=== PATIENT | male | born 1950 | race African-American/Black ===

== ENCOUNTER 2016-08-16 13:25 | Emergency (ER) | payer SELFPAY ==
[~2016-08-16] VITALS: Ht 185.4 cm; Wt 110.0 kg
[~2016-08-16 13:25] MED LIST: 1-ME1LIQ PO; ANDR1GEL TD; BACT800T5 PO; CEPH500C3 PO; CYMB30CA PO; HYDR-3533 PO; LISI-363 PO; QUET1TAB65 PO
[2016-08-16 13:27] VITALS: BP 190/124; PULSE 73; RESP 16; TEMP 97.8; O2SAT 97
--- NOTE | 2016-08-16 13:38 | PD ---
Physical Exam Date Seen by Provider: August 16, 2016 Time Seen by Provider: 13:36 Narrative 66 year old male presents to the emergency department for evaluation of hypertension. He reports associated headache. He has been off his lisinopril and amlodipine for a couple of weeks due to not being able to see his doctor. No chest pain. Vital signs reviewed. Patient awaiting bed placement. Data Data Last Documented VS Vital Signs Date Time Temp Pulse Resp B/P Pulse Ox O2 Delivery O2 Flow Rate FiO2 08/16/16 13:27 97.8 73 16 190/124 97 MDM Supervised Visit with ALISSON: Oksana Flynn August 16, 2016 13:38
--- NOTE | 2016-08-16 15:40 | PD ---
HPI Chief Complaint: Hypertension Time Seen by Provider: 15:30 Travel History International Travel<30 days: No Contact w/Intl Traveler<30days: No Traveled to known affect area: No History of Present Illness HPI This is a 66-year-old male with history of hypertension. He reports that he ran out of his lisinopril 20 mg once a day and amlodipine 10 mg twice a day 2-3 weeks ago. He reports that he went to a local [facility] care clinic today and was told that there are no appointments available for 2 weeks and so he was told here to get refills of his medications. In addition the patient is complaining of nasal congestion, sore throat, sinus pressure for the past few days. He reports that he has seasonal allergies and this feels similar. He is requesting specifically Claritin and Flonase which seems to help with the symptoms. He is denying any global headache, blurred vision, nausea or vomiting , chest pain or shortness of breath, abdominal pain. He has no other complaints. PFSH Past Medical History Arthritis: Yes Autoimmune Disease: No Blood Disorders: No Bipolar Disorder: Yes Anxiety: Yes Depression: Yes Heart Rhythm Problems: No Cancer: No Cardiovascular Problems: Yes High Cholesterol: Yes Chemotherapy: No Chest Pain: No Congestive Heart Failure: No Cerebrovascular Accident: No Diabetes: Yes (marginal) Diminished Hearing: Yes (diminished) Endocrine: Yes Gastrointestinal Disorders: Yes GERD: No Gout: Yes Genitourinary: Yes (HX OF RENAL INSUFFICIENCY) Headaches: No Hepatitis: No Hiatal Hernia: No Hypertension: Yes Immune Disorder: No Musculoskeletal: Yes Neurologic: Yes Psychiatric: Yes (BIPOLAR) Reproductive: No Respiratory: No Migraines: No Myocardial Infarction: No Radiation Therapy: No Seizures: Yes Sickle Cell Disease: No Thyroid Disease: No Ulcer: No PNEUMOCCOCAL Vaccine (Year): 1 Past Surgical History Abdominal Surgery: Yes (APPENDECTOMY) AICD: No Appendectomy: Yes Arteriovenous Shunt: No Cardiac Surgery: No Cholecystectomy: No Ear Surgery: No Endocrine Surgery: No Eye Surgery: No Genitourinary Surgery: No Gynecologic Surgery: No Insulin Pump: No Joint Replacement: No Neurologic Surgery: Yes (LAMINECTOMY TO L4-5 , LAMI TO C2-7) Oral Surgery: No Pacemaker: No Thoracic Surgery: No Other Surgery: Yes (laminectomy 2005, 1992) Social History Alcohol Use: Yes (occas) Tobacco Use: Yes Substance Use: No Allergies-Medications (Allergen,Severity, Reaction): Coded Allergies: No Known Allergies (Unverified , 08/16/16) Reported Meds & Prescriptions Reported Meds & Active Scripts Active Claritin (Loratadine) 10 Mg Cap 10 Mg PO DAILY 10 Days Flonase Nasal [place] (Fluticasone Nasal [place]) 50 Mcg/Act [place] 100 Mcg EACH NARE BID 10 Days Lisinopril 20 Mg Tab 20 Mg PO DAILY Amlodipine (Amlodipine Besylate) 10 Mg Tab 10 Mg PO BID 30 Days Keflex (Cephalexin Monohydrate) 500 Mg Cap 500 Mg PO QID 7 Days Bactrim DS (Sulfamethoxazole-Trimethoprim DS) 1 Tab Tab 1 Tab PO BID 7 Days Lortab 5 mg/325 mg (Hydrocodone/Acetaminophen 5 mg/325 mg) 1 Tab 1 Tab PO Q6H PRN Lisinopril 20 mg (Lisinopril) 20 Mg Tab 1 Tab PO DAILY 30 Days Reported Androgel (Testosterone) 1 % Gel 1 Applic TD BID 1-Methyl 2-Pyrrolidinone (1-Methyl 2-Pyrrolidone (Bulk)) 10 Mg Tab 10 Mg PO BID Cymbalta (Duloxetine HCl) 30 Mg Cap 30 Mg PO BID Seroquel (Quetiapine Fumarate) 200 Mg Tab 600 Mg PO HS Review of Systems Except as stated in HPI: all other systems reviewed are Neg Physical Exam Narrative GENERAL: Well-developed well-nourished male in no acute distress SKIN: Warm and dry. HEAD: Atraumatic. Normocephalic. EYES: Pupils equal and round. No scleral icterus. No injection or drainage. ENT: No nasal bleeding or discharge. Mucous membranes pink and moist. NECK: Trachea midline. No JVD. CARDIOVASCULAR: Regular rate and rhythm. No murmur appreciated. RESPIRATORY: No accessory muscle use. Clear to auscultation. Breath sounds equal bilaterally. GASTROINTESTINAL: Abdomen soft, non-tender, nondistended. MUSCULOSKELETAL: No obvious deformities. NEUROLOGICAL: Awake and alert. No obvious cranial nerve deficits. Motor grossly within normal limits. Normal speech. PSYCHIATRIC: Appropriate mood and affect; insight and judgment normal. Data Data Last Documented VS Vital Signs Date Time Temp Pulse Resp B/P Pulse Ox O2 Delivery O2 Flow Rate FiO2 08/16/16 13:27 97.8 73 16 190/124 97 Orders Amlodipine (Norvasc) (08/16/16 15:45) Lisinopril (Prinivil) (08/16/16 15:45) Loratadine (Claritin) (08/16/16 15:45) [facility] Medical Decision Making Medical Screen Exam Complete: Yes Emergency Medical Condition: Yes Medical Record Reviewed: Yes Differential Diagnosis Medication refill, hypertensive urgency, hypertensive emergency, intracranial hemorrhage, sinusitis, rhinitis Narrative Course 66-year-old male with chronic hypertension presents requesting medication refills. He ran out of lisinopril and amlodipine 2 weeks ago. He is also complaining of sinus congestion, sore throat which she treats to seasonal allergies and he is requesting Flonase and Claritin. The patient is hypertensive in triage. He has no symptoms to suggest hypertensive emergency. The patient will be given refills of his medications. He does have outpatient follow-up in 2 weeks with a local [facility] clinic and he understands that hypertension is a chronic issue that requires constant monitoring and treatment. He'll be given a dose of Claritin here. He'll be discharged with prescriptions for Flonase and Claritin. Diagnosis Primary Impression: Hypertension Additional Impression: Rhinitis Qualified Code: J30.9 - Allergic rhinitis, unspecified allergic rhinitis trigger, unspecified rhinitis seasonality Additional Instructions: As discussed, monitor blood pressure on a regular basis and keep a journal of the readings. Follow-up with primary care physician for continual management of your hypertension. Medication as prescribed. Return for any emergent medical conditions. Med/Other Pt SpecificInfo: Prescription(s) given Scripts Loratadine (Claritin)10 Mg Cap10 Mg PO DAILY 10 Days Ref 0 Prov:Nabil Galeana MD 08/16/16 Fluticasone Nasal [place] (Flonase Nasal [place])50 Mcg/Act [id number] Mcg EACH NARE BID 10 Days Ref 0 Prov:Nabil Galeana MD 08/16/16 Lisinopril 20 Mg Tab20 Mg PO DAILY #30 TAB Ref 0 Prov:Nabil Galeana MD 08/16/16 Amlodipine 10 Mg Tab10 Mg PO BID 30 Days Ref 0 Prov:Nabil Galeana MD 08/16/16 Disposition: 01 DISCHARGE HOME Condition: Stable Jesús Monroe August 16, 2016 15:40
[2016-08-16] MEDS ORDERED: CLAR10CA3 PO (15:42)
[2016-08-16] MEDS ORDERED: FLUT1SPR5 EACH NARE (15:42)
[2016-08-16] MEDS ORDERED: LISI-515 PO (15:42)
[2016-08-16] MEDS ORDERED: AMLO10TA2 PO (15:42)
[2016-08-16] MEDS ORDERED: LISINOPRIL 20 MG TAB PO ONE (15:45)
[2016-08-16] MEDS ORDERED: LORATADINE 10 MG TAB PO ONE (15:45)
[2016-08-16] MEDS ORDERED: SERO300T PO (15:51)
[2016-08-16] MEDS ORDERED: CYMB30CA PO (15:51)
[2016-08-16 15:53] VITALS: BP 178/102; PULSE 78; RESP 20; O2SAT 97
[2016-08-16] MEDS ORDERED: BUSP10TA PO (15:53)
== END 2016-08-16 16:27 | disposition home or self-care (01) ==
LOC: NEPD 13:25
DX: I10 Essential (primary) hypertension (principal); J30.9 Allergic rhinitis, unspecified; Z72.0 Tobacco use
CPT/HCPCS: 99283

== ENCOUNTER 2017-07-19 17:50 | Emergency (ER) | payer MEDICARE ==
[~2017-07-19] VITALS: Ht 185.4 cm; Wt 116.4 kg
[~2017-07-19 17:50] MED LIST changes: -1-ME1LIQ PO; +AMLO10TA2 PO; -ANDR1GEL TD; -BACT800T5 PO; +BUSP10TA PO; -CEPH500C3 PO; +CLAR10CA3 PO; +FLUT1SPR5 EACH NARE; -HYDR-3533 PO; -LISI-363 PO; +LISI-515 PO; -QUET1TAB65 PO; +SERO300T PO
[2017-07-19 18:08] VITALS: BP 221/120; PULSE 72; RESP 16; O2SAT 98
[2017-07-19] MEDS ORDERED: SODIUM CHLOR 0.9% 1000 ML INJ 1,000 ML IV ONE (18:34)
[2017-07-19] MEDS ORDERED: LISINOPRIL 20 MG TAB PO ONE (18:45)
[2017-07-19] MEDS ORDERED: SODIUM CHLORIDE 0.9% FLUSH 10 ML FLUSH IVF PRN (18:45)
[2017-07-19] MEDS ORDERED: ONDANSETRON HCL 4 MG/2 ML VIAL IVP ONE (18:45)
[2017-07-19] MEDS ORDERED: MECLIZINE HCL 25 MG TAB PO ONE (18:45)
[2017-07-19 19:13] VITALS: BP 196/119; PULSE 73; RESP 16; O2SAT 98
--- NOTE | 2017-07-19 19:15 | PD ---
HPI Chief Complaint: Dizziness Time Seen by Provider: 18:25 Travel History International Travel<30 days: No Contact w/Intl Traveler<30days: No Traveled to known affect area: No History of Present Illness HPI 67-year-old male presents to the emergency department for evaluation of dizziness, vertigo. Patient reports history of vertigo. He states he had episode of vertigo yesterday. He states he had another episode of vertigo wile at the gym today with associated headache. He states the headache has improved on its own. He reports the headache is currently 5/10 frontal, aching. No radiation. Patient states the dizziness is worse with movement and position changes. He denies any chest pain or shortness of breath. No abdominal pain. No nausea, vomiting, diarrhea. Patient has history of hypertension. He did not take his hypertensive medications today. He is on lisinopril and amlodipine. Patient states that he called his primary care physician who told him to go to an urgent care clinic. However, the urgent care clinic sent him to the emergency department. Patient denies any dizziness at this time. He has no other symptoms or complaints. Moderate severity. PFSH Past Medical History Arthritis: Yes Autoimmune Disease: No Blood Disorders: No Bipolar Disorder: Yes Anxiety: Yes Depression: Yes Heart Rhythm Problems: No Cancer: No Cardiovascular Problems: Yes (HTN) High Cholesterol: Yes Chemotherapy: No Chest Pain: No Congestive Heart Failure: No Cerebrovascular Accident: No Diabetes: Yes (NEWLY DIAGNOSED) Patient Takes Glucophage: No Diminished Hearing: Yes (DIMINISHED) Endocrine: Yes Gastrointestinal Disorders: Yes GERD: No Gout: Yes Genitourinary: Yes (HX OF RENAL INSUFFICIENCY) Headaches: No Hepatitis: No Hiatal Hernia: No Hypertension: Yes Immune Disorder: No Musculoskeletal: Yes Neurologic: Yes Psychiatric: Yes (BIPOLAR) Reproductive: No Respiratory: No Immunizations Current: Yes Migraines: No Myocardial Infarction: No Radiation Therapy: No Seizures: Yes Sickle Cell Disease: No Thyroid Disease: No Ulcer: No PNEUMOCCOCAL Vaccine (Year): 1 Past Surgical History Abdominal Surgery: Yes (APPENDECTOMY) AICD: No Appendectomy: Yes Arteriovenous Shunt: No Cardiac Surgery: No Cholecystectomy: No Ear Surgery: No Endocrine Surgery: No Eye Surgery: No Genitourinary Surgery: No Gynecologic Surgery: No Insulin Pump: No Joint Replacement: No Neurologic Surgery: Yes (LAMINECTOMY TO L4-5 , LAMI TO C2-7) Oral Surgery: No Pacemaker: No Thoracic Surgery: No Other Surgery: Yes (laminectomy 2005, 1992) Social History Alcohol Use: No Tobacco Use: No Substance Use: No Allergies-Medications (Allergen,Severity, Reaction): Coded Allergies: No Known Allergies (Unverified Adverse Reaction, Unknown, 07/19/17) Reported Meds & Prescriptions Reported Meds & Active Scripts Active Ondansetron Odt 4 Mg Tab 4 Mg SL Q6HR PRN Meclizine (Meclizine HCl) 25 Mg Tab 25 Mg PO TID PRN Claritin (Loratadine) 10 Mg Cap 10 Mg PO DAILY 10 Days Flonase Nasal [place] (Fluticasone Nasal [place]) 50 Mcg/Act [place] 100 Mcg EACH NARE BID 10 Days Lisinopril 20 Mg Tab 20 Mg PO DAILY Amlodipine (Amlodipine Besylate) 10 Mg Tab 10 Mg PO BID 30 Days Reported Buspirone (Buspirone HCl) 10 Mg Tab 10 Mg PO TID Cymbalta DR (Duloxetine HCl) 30 Mg Capdr 30 Mg PO BID Seroquel (Quetiapine Fumarate) 300 Mg Tab 600 Mg PO HS Review of Systems Except as stated in HPI: all other systems reviewed are Neg Physical Exam Narrative GENERAL: Well-nourished, well-developed male patient, afebrile. SKIN: Focused skin assessment warm/dry. HEAD: Normocephalic. Atraumatic. ENT: Mucosa pink and moist. No erythema or exudates. No uvular edema. No uvular , palatal, or tonsillar deviation. Airway patent. Nasal turbinates appear normal without nasal blood, purulent drainage or septal hematoma. Bilateral tympanic membranes are clear without erythema or perforation. EYES: No scleral icterus. No injection or drainage. NECK: Supple, trachea midline. No JVD or lymphadenopathy. CARDIOVASCULAR: Regular rate and rhythm without murmurs, gallops, or rubs. Bilateral radial and pedal pulses 2+. RESPIRATORY: Breath sounds equal bilaterally. No accessory muscle use. Lungs sounds are clear to auscultation. GASTROINTESTINAL: Abdomen soft, non-tender, nondistended. MUSCULOSKELETAL: No cyanosis, or edema. Bilateral upper and lower extremity strength 5/5. All extremities are neurovascularly intact. BACK: Nontender without obvious deformity. No CVA tenderness. NEUROLOGICAL: Awake and alert. Cranial nerves II through XII intact. Motor and sensory grossly within normal limits. Five out of 5 muscle strength in all muscle groups. Normal speech. Finger to nose is normal bilaterally. Heel-to- hernandez is normal bilaterally. Data Data Last Documented VS Vital Signs Date Time Temp Pulse Resp B/P (MAP) Pulse Ox O2 Delivery O2 Flow Rate FiO2 07/19/17 21:46 77 16 189/90 (123) 79 16 186/86 (119) 82 16 185/86 (119) 07/19/17 21:15 97 Room Air Orders Orders Electrocardiogram (07/19/17 ) Ct Brain W/O Iv Contrast(Rout) (07/19/17 ) Complete Blood Count With Diff (07/19/17 18:34) Comprehensive Metabolic Panel (07/19/17 18:34) Magnesium (Mg) (07/19/17 18:34) Ckmb (Isoenzyme) Profile (07/19/17 18:34) Troponin I (07/19/17 18:34) Act Partial Throm Time (Ptt) (07/19/17 18:34) Prothrombin Time / Inr (Pt) (07/19/17 18:34) Urinalysis - C+S If Indicated (07/19/17 18:34) Ecg Monitoring (07/19/17 18:34) Iv Access Insert/Monitor (07/19/17 18:34) Oximetry (07/19/17 18:34) Ondansetron Inj (Zofran Inj) (07/19/17 18:45) Sodium Chloride 0.9% Flush (Ns Flush) (07/19/17 18:45) Sodium Chlor 0.9% 1000 Ml Inj (Ns 1000 M (07/19/17 18:34) Amlodipine (Norvasc) (07/19/17 18:45) Lisinopril (Prinivil) (07/19/17 18:45) Meclizine (Antivert) (07/19/17 18:45) Orthostatic Vital Signs (07/19/17 18:34) Thyroid Stimulating Hormone (07/19/17 18:34) Acetaminophen (Tylenol) (07/19/17 19:30) CKMB (07/19/17 18:30) CKMB% (07/19/17 18:30) Prochlorperazine Inj (Compazine Inj) (07/19/17 20:45) Diphenhydramine Inj (Benadryl Inj) (07/19/17 20:45) Ketorolac Inj (Toradol Inj) (07/19/17 20:45) Sodium Chlorid 0.9% 500 Ml Inj (Ns 500 M (07/19/17 21:00) Hydralazine Inj (Apresoline Inj) (07/19/17 21:45) Labs Laboratory Tests Test 07/19/17 18:30 07/19/17 19:00 White Blood Count 6.8 TH/MM3 Red Blood Count 4.79 MIL/MM3 Hemoglobin 14.9 GM/DL Hematocrit 43.2 % Mean Corpuscular Volume 90.1 FL Mean Corpuscular Hemoglobin 31.1 PG Mean Corpuscular Hemoglobin Concent 34.5 % Red Cell Distribution Width 14.7 % Platelet Count 254 TH/MM3 Mean Platelet Volume 7.2 FL Neutrophils (%) (Auto) 61.9 % Lymphocytes (%) (Auto) 31.0 % Monocytes (%) (Auto) 4.3 % Eosinophils (%) (Auto) 2.0 % Basophils (%) (Auto) 0.8 % Neutrophils # (Auto) 4.2 TH/MM3 Lymphocytes # (Auto) 2.1 TH/MM3 Monocytes # (Auto) 0.3 TH/MM3 Eosinophils # (Auto) 0.1 TH/MM3 Basophils # (Auto) 0.1 TH/MM3 CBC Comment DIFF FINAL Differential Comment Prothrombin Time 10.1 SEC Prothromb Time International Ratio 1.0 RATIO Activated Partial Thromboplast Time 28.3 SEC Blood Urea Nitrogen 12 MG/DL Creatinine 1.12 MG/DL Random Glucose 110 MG/DL Total Protein 7.4 GM/DL Albumin 3.6 GM/DL Calcium Level 8.5 MG/DL Magnesium Level 2.3 MG/DL Alkaline Phosphatase 49 U/L Aspartate Amino Transf (AST/SGOT) 22 U/L Alanine Aminotransferase (ALT/SGPT) 22 U/L Total Bilirubin 0.2 MG/DL Sodium Level 141 MEQ/L Potassium Level 4.2 MEQ/L Chloride Level 111 MEQ/L Carbon Dioxide Level 23.0 MEQ/L Anion Gap 7 MEQ/L Estimat Glomerular Filtration Rate 80 ML/MIN Total Creatine Kinase 380 U/L Creatine Kinase MB 2.8 NG/ML Creatine Kinase MB % 0.7 % Troponin I LESS THAN 0.02 NG/ML Thyroid Stimulating Hormone 3rd Gen 0.866 uIU/ML Urine Color YELLOW Urine Turbidity CLEAR Urine pH 6.0 Urine Specific [place] 1.013 Urine Protein NEG mg/dL Urine Glucose (UA) NEG mg/dL Urine Ketones NEG mg/dL Urine Occult Blood NEG Urine Nitrite NEG Urine Bilirubin NEG Urine Urobilinogen LESS THAN 2.0 MG/DL Urine Leukocyte Esterase NEG Urine RBC 1 /hpf Urine WBC LESS THAN 1 /hpf Urine Mucus FEW /lpf Microscopic Urinalysis Comment CULT NOT INDICATED MDM Medical Decision Making Medical Screen Exam Complete: Yes Emergency Medical Condition: Yes Medical Record Reviewed: Yes Interpretation(s) CT brain - CONCLUSION: Negative noncontrast head CT. Differential Diagnosis Vertigo versus dehydration versus electrolyte abnormality versus intracranial abnormality versus hypertension Narrative Course 67-year-old male presents to the emergency department for evaluation of dizziness and headache. He has history of vertigo with similar symptoms. Patient is hypertensive in the emergency department, but he did not take his blood pressure medication today. EKG, CBC, CMP, magnesium, TSH, CK, troponin, PTT, PT/INR, UA are ordered and pending. CT of the brain is ordered and pending. Orthostatic vital signs are ordered and pending. Patient is given lisinopril 20 mg by mouth, meclizine 25 mg by mouth, amlodipine 10 mg by mouth, Zofran 4 mg IV. EKG shows sinus rhythm, heart rate 70, no acute ST changes. CBC is unremarkable. CMP shows no acute abnormality. Magnesium is 2.3. TSH is 0.866. CK is 380. Troponin is less than 0.02. Coags are unremarkable. UA is negative for acute infection. CT of the brain is negative. Orthostatic VS are negative for orthostatic hypotension. On re-examination, patient is requesting medication for his headache. Patient is given normal saline 500 bolus, Toradol 30 mg IV, Compazine 10 mg IV, Benadryl 25 mg IV. 2114 - patient's bp is elevated at 202/116. He is given hydralazine 10 mg IV. Upon reassessment, patient states he is feeling much better. Patient is also requesting a prescription for his lisinopril stating that he is out. He'll be given this as well as prescription for meclizine and Zofran. He is instructed to follow his primary care physician either tomorrow or Sunday. He is to return here for any acute worsening of symptoms. He verbalizes agreement to this. The patient was discharged in stable condition with instructions, including return instructions and follow up instructions. Diagnosis Primary Impression: Vertigo Additional Impression: Hypertension Referrals: Primary Care Physician 2 days Patient Instructions: Chronic Hypertension (ED), General Instructions, Vertigo (ED) Departure Forms: Tests/Procedures, Work Release Enter return to work date: Jul 22, 2017 Additional Instructions: Take meclizine as directed as needed for dizziness. Take Zofran as instructed as needed for nausea/vomiting. Monitor your blood pressure and follow-up with your primary care physician in 2 days. Return to the emergency department for any acute worsening of symptoms. Med/Other Pt SpecificInfo: Prescription(s) given Scripts Lisinopril (Lisinopril) 20 Mg Tab 20 MG PO BID for 30 Days, #60 TAB 0 Refills Prov: Oksana Hernandez 07/19/17 Ondansetron Odt (Ondansetron Odt) 4 Mg Tab 4 MG SL Q6HR Y for Nausea/Vomiting, #16 TAB 0 Refills Prov: Oksana Hernandez 07/19/17 Meclizine (Meclizine) 25 Mg Tab 25 MG PO TID Y for VERTIGO, #21 TAB 0 Refills Prov: Oksana Hernandez 07/19/17 Disposition: 01 DISCHARGE HOME Condition: Stable Oksana Hernandez Jul 19, 2017 19:15
[2017-07-19 19:26] LABS: AUTOMATED NEUTROPHIL # 4.2 TH/MM3 (1.8-7.7); BASOPHIL # 0.1 TH/MM3 (0-0.2); BASOPHIL % 0.8 % (0.0-2.0); EOSINOPHIL # 0.1 TH/MM3 (0-0.4); HEMATOCRIT 43.2 % (39.0-51.0); HEMOGLOBIN 14.9 GM/DL (13.0-17.0); LYMPHOCYTE # 2.1 TH/MM3 (1.0-4.8); MEAN CELL VOLUME 90.1 FL (80.0-100.0); MEAN CORPUSCULAR HEMOGLOBIN 31.1 PG (27.0-34.0); MEAN CORPUSCULAR HGB CONC 34.5 % (32.0-36.0); MEAN PLATELET VOLUME 7.2 FL (7.0-11.0); MONO % 4.3 % (0.0-8.0); MONOCYTE # 0.3 TH/MM3 (0-0.9); NEUT % 61.9 % (16.0-70.0); PLATELET COUNT 254 TH/MM3 (150-450); RED BLOOD COUNT 4.79 MIL/MM3 (4.50-5.90); RED CELL DISTRIBUTION WIDTH 14.7 % (11.6-17.2); WHITE BLOOD COUNT 6.8 TH/MM3 (4.0-11.0)
[2017-07-19] MEDS ORDERED: ACETAMINOPHEN 325 MG TAB PO ONE (19:30)
[2017-07-19 19:40] LABS: PROTHROMBIN TIME - PATIENT 10.1 SEC (9.8-11.6)
--- NOTE | 2017-07-19 19:45 | RADRPT ---
EXAM DATE/TIME: 07/19/2017 19:30 [facility] COMPARISON: No previous studies available for comparison. INDICATIONS : Cephalgia. RADIATION DOSE: 50.11 CTDIvol (mGy) MEDICAL HISTORY : Seizures. Hypertension. Diabetes. SURGICAL HISTORY : None. ENCOUNTER: Initial ACUITY: 1 day PAIN SCALE: 8/10 LOCATION: cranial TECHNIQUE: Multiple contiguous axial images were obtained of the head. Using automated exposure control and adj ustment of the mA and/or kV according to patient size, radiation dose was kept as low as reasonably a chievable to obtain optimal diagnostic quality images. DICOM format image data is available electro nically for review and comparison. FINDINGS: CEREBRUM: The ventricles are normal for age. No evidence of midline shift, mass lesion, hemorrhage or acute in farction. No extra-axial fluid collections are seen. POSTERIOR FOSSA: The cerebellum and brainstem are intact. The 4th ventricle is midline. The cerebellopontine angle i s unremarkable. EXTRACRANIAL: The visualized portion of the orbits is intact. Also thickening is noted in the left maxillary sinus. And second SKULL: The calvaria is intact. No evidence of skull fracture. CONCLUSION: Negative noncontrast head CT. Yosvany Wilcox MD on July 19, 2017 at 19:42 Board Certified Radiologist. This report was verified electronically.
[2017-07-19 19:49] LABS: ALBUMIN 3.6 GM/DL (3.4-5.0); ALT (GPT) 22 U/L (12-78); AST (GOT) 22 U/L (15-37); BLOOD UREA NITROGEN 12 MG/DL (7-18); CALCIUM 8.5 MG/DL (8.5-10.1); CHLORIDE 111 MEQ/L (98-107); CREATININE 1.12 MG/DL (0.60-1.30); GLOMERULAR FILTRATION RATE 80 ML/MIN (>89); GLUCOSE,RANDOM 110 MG/DL (74-106); MAGNESIUM 2.3 MG/DL (1.5-2.5); SODIUM (NA) 141 MEQ/L (136-145)
[2017-07-19 19:58] LABS: ALKALINE PHOSPHATASE 49 U/L (45-117); TOTAL BILIRUBIN ADULT 0.2 MG/DL (0.2-1.0); TOTAL PROTEIN 7.4 GM/DL (6.4-8.2); TROPONIN I LESS THAN 0.02 NG/ML (0.02-0.05)
[2017-07-19 20:14] VITALS: BP 186/101; PULSE 76; RESP 16; O2SAT 100
[2017-07-19 20:18] LABS: BILIRUBIN, URINE NEG (NEG); BLOOD, URINE NEG (NEG); GLUCOSE,URINE NEG (NEG); KETONE, URINE NEG (NEG); MUCUS URINE FEW /lpf (OCC); NITRITE,URINE NEG (NEG); URINE COLOR YELLOW (YELLW/STRAW); URINE LEUKOCYTE ESTERASE NEG (NEG)
[2017-07-19] MEDS ORDERED: diphenhydrAMINE HCL 50 MG/ML VIAL IV PUSH ONE (20:45)
[2017-07-19] MEDS ORDERED: PROCHLORPERAZINE INJ 10 MG/2 ML VIAL IV PUSH ONE (20:45)
[2017-07-19] MEDS ORDERED: KETOROLAC TROMETHAMINE 30 MG/ML (IVP) VIAL IV PUSH ONE (20:45)
[2017-07-19] MEDS ORDERED: SODIUM CHLORID 0.9% 500 ML INJ 500 ML IV ONE (21:00)
[2017-07-19 21:15] VITALS: BP 202/116; PULSE 76; RESP 16; O2SAT 97
[2017-07-19] MEDS ORDERED: hydrALAZINE HCL 20 MG/ML VIAL IV PUSH ONE (21:45)
[2017-07-19 21:46] VITALS: BP_SYST 185; BP_SYST 186; BP_SYST 189; BP_DIAS 86; BP_DIAS 90; RESP 16
[2017-07-19] MEDS ORDERED: ONDA4TAB7 SL (21:54)
[2017-07-19] MEDS ORDERED: MECL-62 PO (21:54)
[2017-07-19] MEDS ORDERED: LISI-515 PO (22:00)
[2017-07-19 22:16] VITALS: BP 172/109
--- NOTE | 2017-07-20 19:52 | EKG ---
Date Performed: 07/19/2017 Time Performed: 18:21:37 PTAGE: 67 years EKG: Sinus rhythm BORDERLINE LEFT AXIS DEVIATION MINIMAL VOLTAGE CRITERIA FOR LVH, CONSIDER NORMAL VARIANT NONSPECIFIC T-WAVE ABNORMALITY BORDERLINE ECG Since the PREVIOUS TRACING , no significant change noted PREVIOUS TRACIN03/27/2011 @ 1735 DOCTOR: Osman Villa Interpretating Date/Time 07/20/2017 19:51:20
== END 2017-07-19 22:20 | disposition home or self-care (01) ==
LOC: NEPC 17:50
DX: R42 Dizziness and giddiness (principal); I10 Essential (primary) hypertension; F31.9 Bipolar disorder, unspecified; R94.31 Abnormal electrocardiogram [ECG] [EKG]; Z79.899 Other long term (current) drug therapy
CPT/HCPCS: 70450; 80053; 81001; 82550; 82552; 83735; 84443; 84484; 85025; 85610; 85730; 93005; 96374; 96375; 99285; J0360; J0780; J1200; J1885; J2405; J7040